=== PATIENT | male | born 1985 | race Caucasian/White ===

== ENCOUNTER 2017-06-08 14:09 | Emergency (ER) | payer OTHER ==
[~2017-06-08] VITALS: Ht 185.4 cm; Wt 109.1 kg
[~2017-06-08 14:09] MED LIST: ALPR0.5T8 PO
[2017-06-08 16:14] VITALS: BP 135/88
== END 2017-06-08 16:20 | disposition home or self-care (01) ==
LOC: EMS 14:11
DX: Z77.21 Contact with and (suspected) exposure to potentially hazardous body fluids (principal)
CPT/HCPCS: 80074; 99283

== ENCOUNTER 2018-08-15 10:38 | Emergency (ER) | payer OTHER ==
[~2018-08-15] VITALS: Ht 185.4 cm; Wt 116.4 kg
[2018-08-15] MEDS ORDERED: KETOROLAC TROMETHAMINE 30 MG/ML VIAL IM ONE (12:00)
[2018-08-15 12:45] VITALS: BP 130/85
== END 2018-08-15 13:12 | disposition home or self-care (01) ==
LOC: EMS 10:38
DX: S46.912A Strain of unspecified muscle, fascia and tendon at shoulder and upper arm level, left arm, initial encounter (principal); M54.10 Radiculopathy, site unspecified; X58.XXXA Exposure to other specified factors, initial encounter; Y93.89 Activity, other specified; Y92.89 Other specified places as the place of occurrence of the external cause; Y99.0 Civilian activity done for income or pay
CPT/HCPCS: 73030; 96372; 99283; J1885